=== PATIENT | female | born 1935 | race Caucasian/White ===

== ENCOUNTER → 2018-01-07 | Outpatient (CLI) | payer OTHER | LOC: M.RAD 10:10 | DX: R05 Cough (principal) ==

== ENCOUNTER → 2018-02-26 | Outpatient (CLI) | payer OTHER | LOC: M.ULTRA 12:41 | DX: E04.2 Nontoxic multinodular goiter (principal) ==

== ENCOUNTER → 2019-01-15 | Outpatient (CLI) | payer OTHER ==
--- NOTE | 2019-01-15 11:14 | 2DMMODE ---
[place] [address] 2 D/M-MODE ECHOCARDIOGRAM Name: ANTHONY JONES Room: [facility]#: [id number] Admission: 01/15/19 Attend Phys: Martinez Masterson, Discharge: Date of : 39 Date of Service: 01/15/19 1113 Report #: [id number] THIS REPORT FOR: //name// APPROVED REPORT Study performed: 01/15/2019 08:03:08 EXAM: Comprehensive 2D, Doppler, and color-flow Echocardiogram Patient Location: Out-Patient BSA: 1.63 HR: 67 bpm BP: 114/70 mmHg Other Information Study Quality: Good Indications Fatigue 2D Dimensions IVSd: 11.76 (7-11mm) LVOT Diam: 20.21 (18-24mm) LVDd: 37.65 mm PWd: 10.29 (7-11mm) Ascending Ao: 31.35 (22-36mm) LVDs: 27.45 (25-40mm) Aortic Root: 29.60 mm Volumes Left Atrial Volume (Systole) LA ESV Index: 19.20 mL/m2 Aortic Valve AoV Peak Haile.: 1.11 m/s AO Peak Gr.: 4.95 mmHg LVOT Max P.14 mmHg AO Mean Gr.: 2.71 mmHg LVOT Mean P.67 mmHg LVOT Max V: 0.89 m/s AO V2 VTI: 23.16 cm LVOT Mean V: 0.60 m/s KHUSHI (VTI): 2.96 cm2 LVOT V1 VTI: 21.36 cm AI [place]: 1.72 m/s2 AI PHT: 556.23 ms Mitral Valve E/A Ratio: 0.69 MV Decel. Time: 223.77 ms MV E Max Haile.: 0.47 m/[place] [address] 2 D/M-MODE ECHOCARDIOGRAM Name: ANTHONY JONES Room: [facility]#: [id number] Admission: 01/15/19 Attend Phys: Martinez Masterson, Discharge: Date of : 39 Date of Service: 01/15/19 1113 Report #: [id number] MV PHT: 64.89 ms MVA (PHT): 3.39 cm2 TDI E/Lateral E': 9.40 E/Medial E': 7.83 Medial E' Haile.: 0.06 m/s Lateral E' Haile.: 0.05 m/s Pulmonary Valve PV Peak Haile.: 0.68 m/s PV Peak Gr.: 1.86 mmHg Left Ventricle The left ventricle is normal size. There is normal LV segmental wall motion. There is normal left ventricular wall thickness. Left ventricular systolic function is normal. The left ventricular ejection fraction is within the normal range. LVEF is 55-60%. Grade I - abnormal relaxation pattern. Right Ventricle The right ventricle is normal size. The right ventricular systolic function is normal. Atria The left atrium size is normal. The right atrium size is normal. Aortic Valve Aortic valve leaflets are mildly thickened. Mild aortic regurgitation. There is no aortic valvular stenosis. Mitral Valve The mitral valve is normal in structure. Trace mitral regurgitation. No evidence of mitral valve stenosis. Tricuspid Valve The tricuspid valve is normal in structure. There is no tricuspid valve regurgitation noted. Pulmonic Valve The pulmonary valve is normal in structure. Mild pulmonic regurgitation. Great Vessels The aortic root is normal in size. IVC is normal in size and collapses >50% [place] [address] 2 D/M-MODE ECHOCARDIOGRAM Name: ANTHONY JONES Room: [facility]#: [id number] Admission: 01/15/19 Attend Phys: Martinez Masterosn, Discharge: Date of : 39 Date of Service: 01/15/19 1113 Report #: [id number] Pericardium There is no pericardial effusion. <Conclusion> LVEF is 55-60%. Mild aortic regurgitation. <ELECTRONICALLY SIGNED> By: Martinez Ovalle MD, [facility] 06/1112 12 12 Martinez Ovalle MD, FACC /INF
--- NOTE | 2019-01-15 16:39 | CARDNUC ---
[place] [address] CARDIAC NUCLEAR IMAGING REPORT Name: ANTHONY JONES Room: [facility]#: [id number] Admission: 01/15/19 Attend Phys: Martinez Masterson, Discharge: Date of : 39 Date of Service: 01/15/19 1639 Report #: [id number] THIS REPORT FOR: //name// APPROVED REPORT Imaging Protocol: Rest Tc-99m/Stress Tc-99m 1 day Study performed: 01/15/2019 08:55:00 Indication: Fatigue, decreased exercise tolerance, asthma Patient Location: Out-Patient Stress Tech: Makenna Christiansen Stress Nurse: Darya Tse RN Ht: 5 ft 2 in Wt: 135 lbs BSA: 1.62 m2 HR: 67 bpm BP: 135/85 mmHg BMI: 24.68 Rhythm: NSR Medical History Medical History: asthma Medications: No cardiac medications Allergies: Codeine, Indomethacine, penicillins, sulfa ABT, Vicodin, Albuterol Cardiac Risk Factors: Age, HTN Resting Data Rest SPECT myocardial perfusion imaging was performed in supine position 30 minutes following the intravenous injection of 10.8 mCi of Tc-99m Sestamibi. Time of rest injection: 09:00 The images were gated to evaluate regional wall motion and calculate left ventricular ejection fraction. Administration Route: IV Administration Site: Right Hand Exercise Stress At peak stress, the patient was injected intravenously with 34.0mCi of Tc-99m Sestamibi. Time of stress injection: 11:05 Administration Route: IV Administration Site: Right Hand Heart Rate at time of stress injection: 125 bpm. Gated Stress SPECT was performed 30 minutes after stress injection. The images were gated to evaluate regional [place] [address] CARDIAC NUCLEAR IMAGING REPORT Name: ANTHONY JONES Dana Room: [facility]#: [id number] Admission: 01/15/19 Attend Phys: Martinez Masterson, Discharge: Date of : 39 Date of Service: 01/15/19 1639 Report #: [id number] left ventricular ejection fraction. Prone imaging was performed. Stress Test Details Stress Test: Exercise stress testing was performed using a Casey protocol. HR Max Heart Rate (APMHR): 139 bpm Resting HR: 67 bpm Target HR (85% APMHR): 118 bpm Max HR Achieved: 125 bpm % of APMHR: 89 Recovery HR: 75 bpm HR response to stress: Normal HR response to stress BP Resting BP: 135/85 mmHg Max BP: 188/71 mmHg Recovery BP: 173/82 mmHg BP response to stress: Normal blood pressure response to stress. ECG Resting ECG: Sinus Rhythm Stress ECG: Sinus Rhythm ST Change: None Arrhythmia: None Recovery ECG: Sinus Rhythm Recovery ST Change: none Clinical Reason for Termination: fatigue, Maximal effort Stress Symptoms: None Exercise duration: 7 min 34 sec Exercise capacity: 8.45 METs Stress ECG Conclusion negative Study Quality Study: Good Artifact: No artifact Lung Uptake: Normal Study Data At rest, the left ventricular ejection fraction was 65%.. Post stress, the left ventricular ejection was 75%.. SSS: 2 [place] [address] CARDIAC NUCLEAR IMAGING REPORT Name: ANTHONY JONES Room: [facility]#: [id number] Admission: 01/15/19 Attend Phys: Martinez Masterson, Discharge: Date of : 39 Date of Service: 01/15/19 1639 Report #: [id number] SRS: 0 SDS: 2 Perfusion Review of rest data reveals normal perfusion, without perfusion defects.Imaging obtained following vasodilator stress demonstrate a similar, uniform uptake of tracer without defects. Prone imaging was normal. LVEDV is normal.No segental wall motion abnormality seen. Images were reviewed using [employer]. Wall Motion normal in all segments Nuclear Conclusion ECG Findings: negative for ischemia Clinical Findings: negative for ischemia Nuclear Findings: negative for ischemia Exercise Capacity: not assessed Left Ventricular Function: normal Risk Study: low Negative perfusion nuclear stress test for infarct or ischemia <Conclusion> negative <ELECTRONICALLY SIGNED> By: Chester Parkinson MD, [facility] 01/15/191638 38 38 Chester Parkinson MD, FAC /INF
== END ==
LOC: M.NUC 01-08 12:27 → M.CRD 07:42 → M.NUC 09:00
DX: E04.1 Nontoxic single thyroid nodule (principal); I10 Essential (primary) hypertension; K51.90 Ulcerative colitis, unspecified, without complications; J45.20 Mild intermittent asthma, uncomplicated; Z88.5 Allergy status to narcotic agent; Z88.0 Allergy status to penicillin; Z88.2 Allergy status to sulfonamides

== ENCOUNTER 2019-07-28 10:59 | Emergency (ER) | payer OTHER ==
[~2019-07-28] VITALS: Ht 157.5 cm; Wt 60.3 kg
[2019-07-28] MEDS ORDERED: VALSARTAN80 MG PO (11:30)
[2019-07-28 13:03] LABS: ABSOLUTE EOSINOPHILS 0.1 thou/uL (0.0-0.7); ABSOLUTE LYMPHOCYTES 1.3 thou/uL (0.8-5.3); ABSOLUTE MONOCYTES 0.5 thou/uL (0.0-1.2); BASOPHILS 0.5 %; EOSINOPHILS 0.8 %; HEMATOCRIT 38.8 % (37.0-47.0); HEMOGLOBIN 13.3 gm/dL (12.0-15.0); LYMPHOCYTES 16.5 %; MCH 30.1 pg (26.0-34.0); MCHC 34.2 g/dL (28.0-37.0); MCV 88.1 fL (80.0-100.0); MONOCYTES 6.4 %; MPV 7.8 fl. (7.2-11.1); NUCLEATED RBCS 0 /100WBC; PLATELET COUNT* 165 thou/uL (150-400); POLYS 75.8 %; RDW-CV 13.8 % (10.5-14.5)
[2019-07-28 13:09] LABS: URINE BILIRUBIN NEGATIVE (Negative); URINE BLOOD 1+ (Negative); URINE CLARITY CLEAR; URINE COLOR YELLOW; URINE GLUCOSE-RANDOM NEGATIVE (Negative); URINE KETONES 1+ (Negative); URINE LEUKOCYTES-REFLEX NEGATIVE (Negative); URINE NITRITE-REFLEX NEGATIVE (Negative); URINE PROTEIN NEGATIVE (Negative); URINE SPECIFIC GRAVITY 1.025 (1.005-1.030); URINE UROBILINOGEN 0.2 E.U./dl (0.2-1.0)
[2019-07-28 13:17] LABS: BACTERIA-REFLEX None Seen /HPF (None Seen); CASTS None Seen /LPF (None Seen); CRYSTALS None Seen /LPF (None Seen); SQUAMOUS 0-3 Few /LPF (0-3); URINE RBC 0-2 Rare /HPF (0-2); URINE WBC-REFLEX None Seen /HPF (0-5)
[2019-07-28 13:20] LABS: CALCIUM 8.9 mg/dL (8.5-10.1); CREATININE 0.9 mg/dL (0.6-1.3)
[2019-07-28 13:21] LABS: POTASSIUM 2.7 mmol/L (3.5-5.1)
[2019-07-28 13:25] LABS: ALBUMIN 3.2 g/dL (3.4-5.0); TOTAL BILIRUBIN 0.3 mg/dL (<0.1-1.0)
[2019-07-28] MEDS ORDERED: ZOFRAN ODT4 MG PO (14:46)
[2019-07-28] MEDS ORDERED: K-DUR 20 MEQ T20 MEQ PO (14:46)
[2019-07-28 14:59] VITALS: BP 138/63
--- NOTE | 2019-07-29 13:14 | EKG ---
[place] [address] ELECTROCARDIOGRAM REPORT Name: ANTHONY JONES [id number] Admission: 07/28/19 Attend Phys: Discharge: 07/28/19 Date of : 39 Report #: [id number] THIS REPORT FOR: //name// [facility] ED Test Date: 2019-07-28 Test Time: 13:26:09 Pat Name: ANTHONY JONES Department: Room: Gender: F Advanced Practice Nurse Psychotherapist: [place] : [id number] Requested By: Yemi Sousa Order Number: [id number] MD: Martinez Ovalle Measurements Intervals [place] Rate: 69 P: 56 AL: 172 QRS: 45 QRSD: 140 T: 29 QT: 478 QTc: 512 Interpretive Statements Sinus rhythm Probable left atrial enlargement Right bundle branch block No previous ECG available for comparison Electronically Signed On 07-29-2019 13:13:33 BRISTLE MACHINE OPERATOR by Martinez Ovalle [email or web address] <ELECTRONICALLY SIGNED> By: Martinez Ovalle MD, [facility] 07/29/19 1313 1326 1326 Martinez Ovalle MD, FACC /EPI
== END 2019-07-28 15:00 | disposition home or self-care (01) ==
LOC: M.ERS 10:59
PROVIDERS: Emergency Medicine
DX: A08.4 Viral intestinal infection, unspecified (principal); E87.6 Hypokalemia; I10 Essential (primary) hypertension; R11.2 Nausea with vomiting, unspecified; R19.7 Diarrhea, unspecified; Z90.89 Acquired absence of other organs; Z88.0 Allergy status to penicillin; Z88.2 Allergy status to sulfonamides

== ENCOUNTER → 2020-04-27 | Outpatient (CLI) | payer OTHER ==
[~2020-04-27] MED LIST: K-DUR 20 MEQ T20 MEQ PO; VALSARTAN80 MG PO; ZOFRAN ODT4 MG PO
== END ==
LOC: M.RAD 11:13
PROVIDERS: ATTEND Internal Medicine
DX: Z12.31 Encounter for screening mammogram for malignant neoplasm of breast (principal)